=== PATIENT | female | born 1970 | race Caucasian/White ===

== ENCOUNTER 2016-06-05 19:43 | Emergency (ER) | payer BC ==
[~2016-06-05] VITALS: Ht 160 cm; Wt 81.6 kg
[2016-06-05] MEDS ORDERED: TDAP DIPH,PERTUSS,TET VAC/PF 0.5 ML DISP.SYRIN IM ONE ×2 (20:30→20:39)
[2016-06-05] MEDS ORDERED: MORPHINE SULFATE 4 MG/1 ML DISP.SYRIN IM ONE (20:45)
[2016-06-05] MEDS ORDERED: diphenhydrAMINE 50 MG/1 ML VIAL IM ONE (20:45)
[2016-06-05] MEDS ORDERED: diphenhydrAMINE 50 MG/1 ML VIAL ONE (20:52)
[2016-06-05] MEDS ORDERED: MORPHINE SULFATE 4 MG/1 ML DISP.SYRIN ONE (20:53)
[2016-06-05] MEDS ORDERED: OXYCODONE/APAP 5-325 MG TABLET PO ONE (22:00)
--- NOTE | 2016-06-05 22:00 | NUR ---
PATIENT DENIES NEED FOR FURTHER PAIN RELIEF.
--- NOTE | 2016-06-05 22:00 | NUR ---
NURSE AREVALO APPLIED STERI STRIP, DRESSING, GAUZE AND SPLINT. PATIENT HAS GOOD CIRCULATION, SENSATION, PULSE AND NO NUMBNESS ON THE RIGHT PINKY
--- NOTE | 2016-06-05 22:06 | NUR ---
Patient discharged to home in stable conditon. Written and verbal after care instructions given. Patient verbalizes understanding of instructions.
[2016-06-05 22:10] VITALS: BP 135/95
== END 2016-06-05 22:06 | disposition home or self-care (01) ==
LOC: ER 19:46
DX: S62.606A Fracture of unspecified phalanx of right little finger, initial encounter for closed fracture (principal); S67.196A Crushing injury of right little finger, initial encounter; F10.10 Alcohol abuse, uncomplicated; W23.0XXA Caught, crushed, jammed, or pinched between moving objects, initial encounter; Y93.89 Activity, other specified; Y92.9 Unspecified place or not applicable; Y99.9 Unspecified external cause status
CPT/HCPCS: 11740; 29130; 73140; 90471; 90715; 96372 ×2; 99284; A4217; A4663; J1200; J2270